=== PATIENT | female | born 1980 | race Caucasian/White ===

== ENCOUNTER 2018-01-19 21:29 | Inpatient (IN) ==
--- NOTE | 2018-01-19 21:35 | Emergency Department Note ---
Disposition Clinical Impression: Altered mental status Qualifiers: Altered mental status type: unspecified Qualified Code(s): R41.82 - Altered mental status, unspecified Overdose Qualifiers: Encounter type: initial encounter Injury intent: undetermined intent Qualified Code(s): T50.904A - Poisoning by unspecified drugs, medicaments and biological substances, undetermined, initial encounter Fever Qualifiers: Fever type: unspecified Qualified Code(s): R50.9 - Fever, unspecified Nausea and vomiting Qualifiers: Vomiting type: unspecified Vomiting Intractability: non-intractable Qualified Code(s): R11.2 - Nausea with vomiting, unspecified Sepsis Qualifiers: Sepsis type: sepsis due to unspecified organism Qualified Code(s): A41.9 - Sepsis, unspecified organism Disposition: Admitted As Inpatient Condition: Fair Referrals: Michael Elena DO [Primary Care Provider] - Forms: ED Satisfaction Letter Time of Disposition: 05:22 Nausea/Vomiting/Diarrhea HPI - General Chief complaint: ED Nausea/Vomiting/Diarrhea Stated complaint: NV Time Seen by Provider: 01/19/18 21:34 Source: patient Mode of arrival: wheelchair Limitations: no limitations Nursing Notes Reviewed: Yes Vital Signs Reviewed: Yes - History of Present Illness HPI Narrative: Patient is a 37-year-old female who presents today due to nausea, vomiting, fever, altered mental status. Significant other is present states that for the past 2-3 hours, the patient has been having nausea and vomiting, is not acting herself, not answering questions appropriately. He states that earlier this morning, the patient was acting normally. 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 During this process is when the patient started developing these symptoms. He does state the patient has a previous history of drug use and is currently on Suboxone but he denies that she has had any recent drug use to his knowledge. He denies any other medical problems for the patient. Denies patient having any other complaints of chest pain, shortness breath. No recent known sick contacts. The patient herself only answer a few questions. She does admit to abdominal pain but does not describe where she also admits to nausea, vomiting but denies any diarrhea. Denies any chest pain. Will not answer any other review of system questions. - Related Data Home Medications Medication Instructions Recorded Confirmed ALPRAZolam [Xanax 0.5 MG Tablet] 0.5 mg PO Q6H PRN 10/26/16 10/26/16 Baclofen [Lioresal] 10 mg PO TID 10/26/16 10/26/16 Butalbit/Acetamin/Caff/Codeine 1 cap PO Q4H PRN 10/26/16 10/26/16 [Fioricet-Cod 94-384-15-30 Cap] Ergocalciferol (VITAMIN D2) 50,000 unit PO QWEEK 10/26/16 10/26/16 [Vitamin D2] Omeprazole [PriLOSEC] 40 mg PO DAILY 10/26/16 10/26/16 Ondansetron [Zofran] 8 mg PO DAILY PRN 10/26/16 10/26/16 rOPINIRole [Requip] 0.5 mg PO HS 10/26/16 10/26/16 traZODone [TraZODone] 50 mg PO HS 10/26/16 10/26/16 Allergies Allergy/AdvReac Type Severity Reaction Status Date / Time ciprofloxacin [From Cipro] Allergy Hives Verified 01/19/18 21:32 codeine AdvReac Nausea Verified 01/19/18 21:32 ketorolac [From Toradol] AdvReac Nausea Verified 01/19/18 21:32 morphine AdvReac Nausea Verified 01/19/18 21:32 tramadol AdvReac Nausea Verified 01/19/18 21:32 All systems ED: reviewed and negative except as stated. Constitutional: Reports: fever Cardiovascular: Denies: chest pain Respiratory: Denies: cough, dyspnea Gastrointestinal: Reports: abdominal pain, nausea, vomiting. Denies: diarrhea Past Medical History - Past Medical History Attestation: Yes The following information was validated with the patient. Source: patient Medical history: Reports: GERD, hepatitis, liver disease, renal disease Surgical history: Reports: hysterectomy, ureteral stent, other - Social History Smoking Status: Current every day smoker Alcohol use: Reports: none Drug use: Reports: none Physical Exam - General Limitations: altered mental status General appearance: alert, other (Actively nauseated) - Head Head exam: atraumatic, normocephalic, normal inspection - Eye Eye exam: Present: normal appearance, PERRL, EOMI - ENT ENT exam: normal exam, normal oropharynx, mucous membranes moist - Neck Neck exam: Present: normal inspection, full ROM, trachea midline. Absent: tenderness, meningismus, lymphadenopathy - Chest Chest inspection: Present: normal inspection, symmetric chest wall rise - Respiratory Respiratory exam: Present: normal lung sounds bilaterally - Cardiovascular Cardiovascular exam: Present: normal rhythm, tachycardia, normal heart sounds - Abdominal Exam Abdominal exam: Present: soft, Non-Tender. Absent: tenderness, distention, guarding, rebound, rigidity - Extremities Exam Extremities exam: Present: normal inspection, full ROM. Absent: tenderness, pedal edema - Neurological Exam Neurological exam: Present: alert - Expanded Neurological Exam Patient oriented to: Present: person. Absent: place, time Speech: Present: fluid speech Cranial nerves: EOM function (II, III, IV, ): Normal, facial sensation (V): Normal, facial palsy (VII): Normal, spinal accessory function (XI): Normal, tongue deviation (XII): Normal Motor strength - LUE: 5/5 Motor strength - RUE: 5/5 Motor strength - LLE: 5/5 Motor strength - RLE: 5/5 Sensory exam upper extremity: light touch: Normal Sensory exam lower extremity: light touch: Normal Coma Scale Eye Opening: Spontaneous Coma Scale Motor Response: Obeys Commands Coma Scale Verbal Response: Confused Coma Scale Total: 14 - Psychiatric Psychiatric exam: Present: normal affect, normal mood - Skin Skin exam: Present: warm, dry, intact, normal color Course Course Narrative: With fever, tachycardia, tachypnea, patient meets sepsis criteria. Full sepsis workup was ordered. Patient was given IV Tylenol, 3 L normal saline bolus, CBC , BMP, blood cultures, urinalysis and urine , CT of the head, chest x- ray, CT abdomen and pelvis obtained. Labs show possible UTI. CT abdomen and pelvis shows no evidence of any acute intra-abdominal process. Chest CTA negative for any acute process. Head CT negative for any acute intracranial process. Patient was reassessed and she became less responsive. Patient was given Narcan and she almost immediately became alert, oriented 3, answering questions appropriately. We discussed obtaining an LP with the patient, discussed risk and benefits and the patient refused despite a long conversation about concern for meningitis. MRI of the entire spine was ordered due to concern for fever, complaint of back pain, history of IV drug use. OR was negative for any Jaw abscess. Patient received empiric vancomycin and Zosyn during her stay. She has been accepted for admission by Dr. Santiago. Remains alert and oriented x 3 at this time. Abdomen/Pelvis CTA 01/19/18 21:36 IMPRESSION: No acute aortic abnormality identified. No acute airspace disease or acute abnormality identified in the abdomen or pelvis. Left renal scarring and left nephrolithiasis. Mildly distended gallbladder without visible stones or CT evidence for acute cholecystitis. D/ / Boni Patino / Boni Patino Interpreting Provider: Boni Patino Chest CTA 01/19/18 21:36 IMPRESSION: No acute aortic abnormality identified. No acute airspace disease or acute abnormality identified in the abdomen or pelvis. Left renal scarring and left nephrolithiasis. Mildly distended gallbladder without visible stones or CT evidence for acute cholecystitis. D/ / Boni Patino / Boni Patino Interpreting Provider: Boni Patino Head CT 01/19/18 21:36 IMPRESSION: No acute intracranial abnormality. D/ / Boni Patino / Boni Patino Interpreting Provider: Boni Patino Chest X-Ray 01/19/18 21:40 IMPRESSION: No acute process. D/ / Bard Bee MD / Brad Bee MD Interpreting Provider: Brad Bee MD Vital Signs Temperature 105.3 F H 01/19/18 21:29 Pulse Rate 105 01/19/18 21:29 Respiratory Rate 24 01/19/18 21:29 Blood Pressure 158/78 01/19/18 21:29 O2 Sat by Pulse Oximetry 92 01/19/18 21:29 Temperature 105.3 F H 01/19/18 21:30 Pulse Rate 90 01/19/18 23:41 Respiratory Rate 20 01/19/18 23:41 Blood Pressure 111/53 01/19/18 23:41 O2 Sat by Pulse Oximetry 95 01/19/18 23:41 Oxygen Delivery Oxygen Delivery Nasal Cannula Nausea/Vomiting/Diarrhea - [facility] Narrative Medical decision making narrative: With fever, tachycardia, tachypnea, patient meets sepsis criteria. Full sepsis workup was ordered. Patient was given IV Tylenol, 3 L normal saline bolus, CBC , BMP, blood cultures, urinalysis and urine , CT of the head, chest x- ray, CT abdomen and pelvis obtained. Labs show possible UTI. CT abdomen and pelvis shows no evidence of any acute intra-abdominal process. Chest CTA negative for any acute process. Head CT negative for any acute intracranial process. Patient was reassessed and she became less responsive. Patient was given Narcan and she almost immediately became alert, oriented 3, answering questions appropriately. We discussed obtaining an LP with the patient, discussed risk and benefits and the patient refused despite a long conversation about concern for meningitis. MRI of the entire spine was ordered due to concern for fever, complaint of back pain, history of IV drug use. OR was negative for any Jaw abscess. Patient received empiric vancomycin and Zosyn during her stay. She has been accepted for admission by Dr. Santiago. Remains alert and oriented x 3 at this time. - Medical Records Medical records reviewed: Yes I reviewed the patient's medical records. - Lab Data Lab results reviewed: Yes I reviewed the patient's lab results. Result diagrams: 01/19/18 21:47 01/19/18 21:47 Lab Results 01/19/18 01/19/18 01/19/18 Range/Units 21:40 21:47 21:47 WBC 5.1 (4.3-11.1) K/mcL RBC 3.72 L (3.82-4.97) M/mcL Hgb 12.8 (11.5-15.4) g/dL Hct 37.0 (35.3-44.9) % MCV 99.5 (83.0-100.0) fL MCH 34.4 H (28.0-33.3) pg MCHC 34.6 (31.6-35.5) g/dL RDW 12.9 (11.5-14.5) % Plt Count 163 (140-400) K/mcL MPV 9.3 L (9.4-12.4) fL Immature Gran % 0.4 (0-4) % Seg Neutrophils % 86.6 % Lymphocytes % 11.8 % Monocytes % 1.2 % Eosinophils % 0.0 % Basophils % 0.0 % Neutrophils # 4.4 (1.6-8.9) K/mcL Lymphocytes # 0.6 (0.6-4.6) K/mcL Monocytes # 0.1 (0.0-1.3) K/mcL Eosinophils # 0.0 (0.0-0.6) K/mcL Basophils # 0.0 (0.0-0.2) K/mcL Platelet Estimate Normal (Normal) PT 11.9 (9.4-12.1) Seconds INR 1.1 APTT 29.2 (26.0-36.0) Seconds VBG pH (7.32-7.42) pH Units VBG pCO2 (41-51) mmHg VBG pO2 (25-50) mmHg VBG HCO3 (21-27) mEq/L Carboxyhemoglobin (0-5) % Sodium (136-145) mEq/L Potassium (3.5-5.1) mEq/L Chloride (98-107) mEq/L Carbon Dioxide (23-29) mEq/L BUN (6-20) mg/dL Creatinine (0.60-1.20) mg/dL Est GFR ( Amer) (> 60) Est GFR (Non-Af Amer) (> 60) BUN/Creatinine Ratio (6-26) Glucose (70-105) mg/dL Calculated Osmolality (280-300) Lactic Acid (0.5-2.2) mmol/L Calcium (8.6-10.3) mg/dL Phosphorus (2.7-4.5) mg/dL Magnesium (1.6-2.6) mg/dL Total Bilirubin (0.3-1.0) mg/dL Direct Bilirubin (0.0-0.2) mg/dL Indirect Bilirubin (0.0-1.2) mg/dL AST (13-39) Units/L ALT (7-52) Units/L Alkaline Phosphatase (34-104) Units/L Troponin I (< 0.04) ng/mL B-Natriuretic Peptide (Less than 100) pg/mL Serum Total Protein (6.4-8.9) g/dL Albumin (3.5-5.7) g/dL Globulin (2.4-3.5) g/dL Albumin/Globulin Ratio (1.1-2.2) Lipase (11-82) Units/L Urine Color Yellow (Yellow) Urine Clarity Slightly Hazy (Clear) Urine pH 8.0 (5.0-8.0) pH Units Ur Specific [place] 1.019 (1.010-1.025) Urine Protein 100 H (Neg-Trace) mg/dL Urine Glucose (UA) Normal (Normal) mg/dL Urine Ketones Negative (Negative) mg/dL Urine Blood Small H (Negative) Urine Nitrite Negative (Negative) Urine Bilirubin Negative (Negative) Urine Urobilinogen Normal (Normal) mg/dL Ur Leukocyte Esterase Moderate H (Negative) Urine Microscopic RBC 15-30 H (0-3) per hpf Urine Microscopic WBC 50-100 H (0-3) per hpf Ur Squamous Epith Cells Moderate H (None-Few) per lpf Urine Bacteria Few (None-Few) per hpf Hyaline Casts None Seen (None-Few) per lpf Ur Culture Indicated? YES A (NO) Salicylates (15.0-30.0) mg/dL Acetaminophen (10-20) mcg/mL 01/19/18 01/19/18 01/19/18 Range/Units 21:47 21:47 21:47 WBC (4.3-11.1) K/mcL RBC (3.82-4.97) M/mcL Hgb (11.5-15.4) g/dL Hct (35.3-44.9) % MCV (83.0-100.0) fL MCH (28.0-33.3) pg MCHC (31.6-35.5) g/dL RDW (11.5-14.5) % Plt Count (140-400) K/mcL MPV (9.4-12.4) fL Immature Gran % (0-4) % Seg Neutrophils % % Lymphocytes % % Monocytes % % Eosinophils % % Basophils % % Neutrophils # (1.6-8.9) K/mcL Lymphocytes # (0.6-4.6) K/mcL Monocytes # (0.0-1.3) K/mcL Eosinophils # (0.0-0.6) K/mcL Basophils # (0.0-0.2) K/mcL Platelet Estimate (Normal) PT (9.4-12.1) Seconds INR APTT (26.0-36.0) Seconds VBG pH (7.32-7.42) pH Units VBG pCO2 (41-51) mmHg VBG pO2 (25-50) mmHg VBG HCO3 (21-27) mEq/L Carboxyhemoglobin (0-5) % Sodium 137 (136-145) mEq/L Potassium 4.0 (3.5-5.1) mEq/L Chloride 104 (98-107) mEq/L Carbon Dioxide 26 (23-29) mEq/L BUN 19 (6-20) mg/dL Creatinine 1.22 H (0.60-1.20) mg/dL Est GFR ( Amer) > 60 (> 60) Est GFR (Non-Af Amer) 50 L (> 60) BUN/Creatinine Ratio 16 (6-26) Glucose 103 (70-105) mg/dL Calculated Osmolality 287 (280-300) Lactic Acid 1.3 (0.5-2.2) mmol/L Calcium 9.3 (8.6-10.3) mg/dL Phosphorus 2.0 L (2.7-4.5) mg/dL Magnesium 1.7 (1.6-2.6) mg/dL Total Bilirubin 0.7 (0.3-1.0) mg/dL Direct Bilirubin 0.1 (0.0-0.2) mg/dL Indirect Bilirubin 0.6 (0.0-1.2) mg/dL AST 29 (13-39) Units/L ALT 33 (7-52) Units/L Alkaline Phosphatase 72 (34-104) Units/L Troponin I < 0.03 (< 0.04) ng/mL B-Natriuretic Peptide 76 (Less than 100) pg/mL Serum Total Protein 7.5 (6.4-8.9) g/dL Albumin 4.2 (3.5-5.7) g/dL Globulin 3.3 (2.4-3.5) g/dL Albumin/Globulin Ratio 1.3 (1.1-2.2) Lipase 9 L (11-82) Units/L Urine Color (Yellow) Urine Clarity (Clear) Urine pH (5.0-8.0) pH Units Ur Specific [place] (1.010-1.025) Urine Protein (Neg-Trace) mg/dL Urine Glucose (UA) (Normal) mg/dL Urine Ketones (Negative) mg/dL Urine Blood (Negative) Urine Nitrite (Negative) Urine Bilirubin (Negative) Urine Urobilinogen (Normal) mg/dL Ur Leukocyte Esterase (Negative) Urine Microscopic RBC (0-3) per hpf Urine Microscopic WBC (0-3) per hpf Ur Squamous Epith Cells (None-Few) per lpf Urine Bacteria (None-Few) per hpf Hyaline Casts (None-Few) per lpf Ur Culture Indicated? (NO) Salicylates (15.0-30.0) mg/dL Acetaminophen (10-20) mcg/mL 01/19/18 01/19/18 01/19/18 Range/Units 21:47 21:47 21:58 WBC (4.3-11.1) K/mcL RBC (3.82-4.97) M/mcL Hgb (11.5-15.4) g/dL Hct (35.3-44.9) % MCV (83.0-100.0) fL MCH (28.0-33.3) pg MCHC (31.6-35.5) g/dL RDW (11.5-14.5) % Plt Count (140-400) K/mcL MPV (9.4-12.4) fL Immature Gran % (0-4) % Seg Neutrophils % % Lymphocytes % % Monocytes % % Eosinophils % % Basophils % % Neutrophils # (1.6-8.9) K/mcL Lymphocytes # (0.6-4.6) K/mcL Monocytes # (0.0-1.3) K/mcL Eosinophils # (0.0-0.6) K/mcL Basophils # (0.0-0.2) K/mcL Platelet Estimate (Normal) PT (9.4-12.1) Seconds INR APTT (26.0-36.0) Seconds VBG pH 7.47 H (7.32-7.42) pH Units VBG pCO2 36 L (41-51) mmHg VBG pO2 154 H (25-50) mmHg VBG HCO3 27 (21-27) mEq/L Carboxyhemoglobin 10.2 H (0-5) % Sodium (136-145) mEq/L Potassium (3.5-5.1) mEq/L Chloride (98-107) mEq/L Carbon Dioxide (23-29) mEq/L BUN (6-20) mg/dL Creatinine (0.60-1.20) mg/dL Est GFR ( Amer) (> 60) Est GFR (Non-Af Amer) (> 60) BUN/Creatinine Ratio (6-26) Glucose (70-105) mg/dL Calculated Osmolality (280-300) Lactic Acid (0.5-2.2) mmol/L Calcium (8.6-10.3) mg/dL Phosphorus (2.7-4.5) mg/dL Magnesium (1.6-2.6) mg/dL Total Bilirubin (0.3-1.0) mg/dL Direct Bilirubin (0.0-0.2) mg/dL Indirect Bilirubin (0.0-1.2) mg/dL AST (13-39) Units/L ALT (7-52) Units/L Alkaline Phosphatase (34-104) Units/L Troponin I (< 0.04) ng/mL B-Natriuretic Peptide (Less than 100) pg/mL Serum Total Protein (6.4-8.9) g/dL Albumin (3.5-5.7) g/dL Globulin (2.4-3.5) g/dL Albumin/Globulin Ratio (1.1-2.2) Lipase (11-82) Units/L Urine Color (Yellow) Urine Clarity (Clear) Urine pH (5.0-8.0) pH Units Ur Specific [place] (1.010-1.025) Urine Protein (Neg-Trace) mg/dL Urine Glucose (UA) (Normal) mg/dL Urine Ketones (Negative) mg/dL Urine Blood (Negative) Urine Nitrite (Negative) Urine Bilirubin (Negative) Urine Urobilinogen (Normal) mg/dL Ur Leukocyte Esterase (Negative) Urine Microscopic RBC (0-3) per hpf Urine Microscopic WBC (0-3) per hpf Ur Squamous Epith Cells (None-Few) per lpf Urine Bacteria (None-Few) per hpf Hyaline Casts (None-Few) per lpf Ur Culture Indicated? (NO) Salicylates < 2.5 L (15.0-30.0) mg/dL Acetaminophen < 10 L (10-20) mcg/mL - Radiology Data Radiology results reviewed: Yes I reviewed the patient's radiology results. Abdomen/Pelvis CTA 01/19/18 21:36 IMPRESSION: No acute aortic abnormality identified. No acute airspace disease or acute abnormality identified in the abdomen or pelvis. Left renal scarring and left nephrolithiasis. Mildly distended gallbladder without visible stones or CT evidence for acute cholecystitis. D/ / Boni Patino / Boni Patino Interpreting Provider: Boni Patino Chest CTA 01/19/18 21:36 IMPRESSION: No acute aortic abnormality identified. No acute airspace disease or acute abnormality identified in the abdomen or pelvis. Left renal scarring and left nephrolithiasis. Mildly distended gallbladder without visible stones or CT evidence for acute cholecystitis. D/ / Boni Patino / Boni Patino Interpreting Provider: Boni Patino Head CT 01/19/18 21:36 IMPRESSION: No acute intracranial abnormality. D/ / Boni Patino / Boni Patino Interpreting Provider: Boni Patino Chest X-Ray 01/19/18 21:40 IMPRESSION: No acute process. D/ / Brad Bee MD / Brad Bee MD Interpreting Provider: Brad Bee MD - EKG Data EKG attestation: Yes I reviewed and interpreted this EKG. EKG results narrative: 01/19/2018 at 21:49. Sinus tachycardia. Rate 100. MD 158. QRS 91. QTc 355. Normal axis. No acute ST elevation or depression. S.B.A.R. - S.B.A.R. Situation: Demographics, MOA Background: Presenting Complaint, Relevant PMH, Meds, & Allergies Assessment: Vital Signs, Course and respsone to treatment, Exam Concerns, Patient/Family Expectation, Pertinant Lab Results Recommendation: Barrier(s) to disposition, Recommendation based on pending studies, treatments, or consults S.B.A.R. Report Given to: Dr. Santiago
[2018-01-19] MEDS ORDERED: Isovue-370 500 ML INFUS..BTL IV ONE (21:36)
[2018-01-19] MEDS ORDERED: Acetaminophen IV 1,000 MG/100 ML INFUS..BTL IVPB ONE (21:43)
[2018-01-19] MEDS ORDERED: Piperacillin/Tazobactam 3.375 GM in 0.9 % Sodium Chloride Mini Bag 100 ML IVPB ONE (21:43)
[2018-01-19] MEDS ORDERED: 0.9 % Sodium Chloride 3,000 ML ONE (21:48)
[2018-01-19] MEDS: 0.9 % Sodium Chloride 1,000 ML IVC SCH ×3 (21:54→23:44)
[2018-01-19 22:01] LABS: VBG HCO3 27 mEq/L (21-27); VBG PCO2 36 mmHg (41-51); VBG PH 7.47 pH Units (7.32-7.42); VBG PO2 154 mmHg (25-50)
[2018-01-19 22:02] LABS: Bilirubin,Urine Negative (Negative); Blood,Urine Small (Negative); Color,Urine Yellow (Yellow); Glucose,Urine (UA) Normal (Normal); Ketones,Urine Negative (Negative); Leukocyte Esterase,Urine Moderate (Negative); Nitrite,Urine Negative (Negative); Protein,Urine 100 mg/dL (Neg-Trace); Specific Gravity,Urine 1.019 (1.010-1.025); Urobilinogen,Urine Normal (Normal)
[2018-01-19 22:03] LABS: Hemoglobin 12.8 g/dL (11.5-15.4); Immature Granulocytes % 0.4 % (0-4); Lymphocytes # 0.6 K/mcL (0.6-4.6); Lymphocytes % 11.8 %; Mean Corpuscular HGB Conc 34.6 g/dL (31.6-35.5); Mean Corpuscular Hemoglobin 34.4 pg (28.0-33.3); Mean Corpuscular Volume 99.5 fL (83.0-100.0); Mean Platelet Volume 9.3 fL (9.4-12.4); Monocytes # 0.1 K/mcL (0.0-1.3); Monocytes % 1.2 %; Neutrophils # 4.4 K/mcL (1.6-8.9); Platelet Count 163 K/mcL (140-400); Red Blood Count 3.72 M/mcL (3.82-4.97); Red Cell Distribution Width 12.9 % (11.5-14.5); Segmented Neutrophils % 86.6 %
[2018-01-19 22:05] LABS: Bacteria,Urine Few per hpf (None-Few); Hyaline Casts,Urine None Seen per lpf (None-Few); RBC,Urine 15-30 per hpf (0-3); Squamous Epithelial Cell,Urine Moderate per lpf (None-Few); WBC,Urine 50-100 per hpf (0-3)
[2018-01-19 22:06] LABS: Clarity,Urine Slightly Hazy (Clear)
[2018-01-19 22:08] LABS: INR 1.1; Prothrombin Time 11.9 Seconds (9.4-12.1)
[2018-01-19 22:10] LABS: Activated Partial Thrombo Time 29.2 Seconds (26.0-36.0)
[2018-01-19 22:19] LABS: Platelet Estimate Normal (Normal)
[2018-01-19 22:22] LABS: Acetaminophen < 10 mcg/mL (10-20); Salicylate < 2.5 mg/dL (15.0-30.0)
[2018-01-19 22:25] LABS: Alanine Aminotransferase 33 Units/L (7-52); Albumin 4.2 g/dL (3.5-5.7); Albumin/Globulin Ratio 1.3 (1.1-2.2); Alkaline Phosphatase 72 Units/L (34-104); Aspartate Amino Transferase 29 Units/L (13-39); BUN/Creatinine Ratio 16 (6-26); Bilirubin,Direct 0.1 mg/dL (0.0-0.2); Bilirubin,Indirect 0.6 mg/dL (0.0-1.2); Bilirubin,Total 0.7 mg/dL (0.3-1.0); Blood Urea Nitrogen 19 mg/dL (6-20); Calcium 9.3 mg/dL (8.6-10.3); Carbon Dioxide 26 mEq/L (23-29); Chloride 104 mEq/L (98-107); Globulin 3.3 g/dL (2.4-3.5); Glucose 103 mg/dL (70-105); Lipase 9 Units/L (11-82); Magnesium 1.7 mg/dL (1.6-2.6); Osmolality,Calculated 287 (280-300); Sodium 137 mEq/L (136-145); Total Protein 7.5 g/dL (6.4-8.9); Troponin I < 0.03 ng/mL (< 0.04); eGFR For African Americans > 60 (> 60); eGFR For Non-African Americans 50 (> 60)
[2018-01-20] MEDS ORDERED: Naloxone 0.4 MG/ML INJ IVP ONE (00:07)
[2018-01-20] MEDS ORDERED: Gadolinium Contrast Agent (WT Based) IV PRN (00:15)
--- NOTE | 2018-01-20 05:23 | Emergency Department Note ---
Disposition Referrals: Michael Elena DO [Primary Care Provider] - Forms: ED Satisfaction Letter General Adult HPI - General Chief complaint: ED Nausea/Vomiting/Diarrhea Stated complaint: NV Time Seen by Provider: 01/19/18 21:34 Source: patient Mode of arrival: wheelchair Limitations: altered mental status - History of Present Illness Pain Scale: 0 - Related Data Home Medications Medication Instructions Recorded Confirmed ALPRAZolam [Xanax 0.5 MG Tablet] 0.5 mg PO Q6H PRN 10/26/16 10/26/16 Baclofen [Lioresal] 10 mg PO TID 10/26/16 10/26/16 Butalbit/Acetamin/Caff/Codeine 1 cap PO Q4H PRN 10/26/16 10/26/16 [Fioricet-Cod 51-671-26-30 Cap] Ergocalciferol (VITAMIN D2) 50,000 unit PO QWEEK 10/26/16 10/26/16 [Vitamin D2] Omeprazole [PriLOSEC] 40 mg PO DAILY 10/26/16 10/26/16 Ondansetron [Zofran] 8 mg PO DAILY PRN 10/26/16 10/26/16 rOPINIRole [Requip] 0.5 mg PO HS 10/26/16 10/26/16 traZODone [TraZODone] 50 mg PO HS 10/26/16 10/26/16 Allergies Allergy/AdvReac Type Severity Reaction Status Date / Time ciprofloxacin [From Cipro] Allergy Hives Verified 01/19/18 21:32 codeine AdvReac Nausea Verified 01/19/18 21:32 ketorolac [From Toradol] AdvReac Nausea Verified 01/19/18 21:32 morphine AdvReac Nausea Verified 01/19/18 21:32 tramadol AdvReac Nausea Verified 01/19/18 21:32 Constitutional: Reports: fever Cardiovascular: Denies: chest pain Respiratory: Denies: cough, dyspnea Gastrointestinal: Reports: abdominal pain, nausea, vomiting. Denies: diarrhea Past Medical History - Past Medical History Medical history: Reports: GERD, hepatitis, liver disease, renal disease Surgical history: Reports: hysterectomy, ureteral stent, other Psychiatric history: Reports: no psych history - Social History Smoking Status: Current every day smoker Alcohol use: Reports: none Drug use: Reports: none Physical Exam - General Limitations: altered mental status General appearance: alert, other (Actively nauseated) Course Vital Signs Temperature 105.3 F H 01/19/18 21:29 Pulse Rate 105 01/19/18 21:29 Respiratory Rate 24 01/19/18 21:29 Blood Pressure 158/78 01/19/18 21:29 O2 Sat by Pulse Oximetry 92 01/19/18 21:29 Temperature 105.3 F H 01/19/18 21:30 Pulse Rate 90 01/19/18 23:41 Respiratory Rate 20 01/19/18 23:41 Blood Pressure 111/53 01/19/18 23:41 O2 Sat by Pulse Oximetry 95 01/19/18 23:41 Oxygen Delivery Oxygen Delivery Nasal Cannula Medical Decision Making - Lab Data Result diagrams: 01/19/18 21:47 01/19/18 21:47 Lab Results 01/19/18 01/19/18 01/19/18 Range/Units 21:40 21:47 21:47 WBC 5.1 (4.3-11.1) K/mcL RBC 3.72 L (3.82-4.97) M/mcL Hgb 12.8 (11.5-15.4) g/dL Hct 37.0 (35.3-44.9) % MCV 99.5 (83.0-100.0) fL MCH 34.4 H (28.0-33.3) pg MCHC 34.6 (31.6-35.5) g/dL RDW 12.9 (11.5-14.5) % Plt Count 163 (140-400) K/mcL MPV 9.3 L (9.4-12.4) fL Immature Gran % 0.4 (0-4) % Seg Neutrophils % 86.6 % Lymphocytes % 11.8 % Monocytes % 1.2 % Eosinophils % 0.0 % Basophils % 0.0 % Neutrophils # 4.4 (1.6-8.9) K/mcL Lymphocytes # 0.6 (0.6-4.6) K/mcL Monocytes # 0.1 (0.0-1.3) K/mcL Eosinophils # 0.0 (0.0-0.6) K/mcL Basophils # 0.0 (0.0-0.2) K/mcL Platelet Estimate Normal (Normal) PT 11.9 (9.4-12.1) Seconds INR 1.1 APTT 29.2 (26.0-36.0) Seconds VBG pH (7.32-7.42) pH Units VBG pCO2 (41-51) mmHg VBG pO2 (25-50) mmHg VBG HCO3 (21-27) mEq/L Carboxyhemoglobin (0-5) % Sodium (136-145) mEq/L Potassium (3.5-5.1) mEq/L Chloride (98-107) mEq/L Carbon Dioxide (23-29) mEq/L BUN (6-20) mg/dL Creatinine (0.60-1.20) mg/dL Est GFR ( Amer) (> 60) Est GFR (Non-Af Amer) (> 60) BUN/Creatinine Ratio (6-26) Glucose (70-105) mg/dL Calculated Osmolality (280-300) Lactic Acid (0.5-2.2) mmol/L Calcium (8.6-10.3) mg/dL Phosphorus (2.7-4.5) mg/dL Magnesium (1.6-2.6) mg/dL Total Bilirubin (0.3-1.0) mg/dL Direct Bilirubin (0.0-0.2) mg/dL Indirect Bilirubin (0.0-1.2) mg/dL AST (13-39) Units/L ALT (7-52) Units/L Alkaline Phosphatase (34-104) Units/L Troponin I (< 0.04) ng/mL B-Natriuretic Peptide (Less than 100) pg/mL Serum Total Protein (6.4-8.9) g/dL Albumin (3.5-5.7) g/dL Globulin (2.4-3.5) g/dL Albumin/Globulin Ratio (1.1-2.2) Lipase (11-82) Units/L Urine Color Yellow (Yellow) Urine Clarity Slightly Hazy (Clear) Urine pH 8.0 (5.0-8.0) pH Units Ur Specific [place] 1.019 (1.010-1.025) Urine Protein 100 H (Neg-Trace) mg/dL Urine Glucose (UA) Normal (Normal) mg/dL Urine Ketones Negative (Negative) mg/dL Urine Blood Small H (Negative) Urine Nitrite Negative (Negative) Urine Bilirubin Negative (Negative) Urine Urobilinogen Normal (Normal) mg/dL Ur Leukocyte Esterase Moderate H (Negative) Urine Microscopic RBC 15-30 H (0-3) per hpf Urine Microscopic WBC 50-100 H (0-3) per hpf Ur Squamous Epith Cells Moderate H (None-Few) per lpf Urine Bacteria Few (None-Few) per hpf Hyaline Casts None Seen (None-Few) per lpf Ur Culture Indicated? YES A (NO) Salicylates (15.0-30.0) mg/dL Acetaminophen (10-20) mcg/mL 01/19/18 01/19/18 01/19/18 Range/Units 21:47 21:47 21:47 WBC (4.3-11.1) K/mcL RBC (3.82-4.97) M/mcL Hgb (11.5-15.4) g/dL Hct (35.3-44.9) % MCV (83.0-100.0) fL MCH (28.0-33.3) pg MCHC (31.6-35.5) g/dL RDW (11.5-14.5) % Plt Count (140-400) K/mcL MPV (9.4-12.4) fL Immature Gran % (0-4) % Seg Neutrophils % % Lymphocytes % % Monocytes % % Eosinophils % % Basophils % % Neutrophils # (1.6-8.9) K/mcL Lymphocytes # (0.6-4.6) K/mcL Monocytes # (0.0-1.3) K/mcL Eosinophils # (0.0-0.6) K/mcL Basophils # (0.0-0.2) K/mcL Platelet Estimate (Normal) PT (9.4-12.1) Seconds INR APTT (26.0-36.0) Seconds VBG pH (7.32-7.42) pH Units VBG pCO2 (41-51) mmHg VBG pO2 (25-50) mmHg VBG HCO3 (21-27) mEq/L Carboxyhemoglobin (0-5) % Sodium 137 (136-145) mEq/L Potassium 4.0 (3.5-5.1) mEq/L Chloride 104 (98-107) mEq/L Carbon Dioxide 26 (23-29) mEq/L BUN 19 (6-20) mg/dL Creatinine 1.22 H (0.60-1.20) mg/dL Est GFR ( Amer) > 60 (> 60) Est GFR (Non-Af Amer) 50 L (> 60) BUN/Creatinine Ratio 16 (6-26) Glucose 103 (70-105) mg/dL Calculated Osmolality 287 (280-300) Lactic Acid 1.3 (0.5-2.2) mmol/L Calcium 9.3 (8.6-10.3) mg/dL Phosphorus 2.0 L (2.7-4.5) mg/dL Magnesium 1.7 (1.6-2.6) mg/dL Total Bilirubin 0.7 (0.3-1.0) mg/dL Direct Bilirubin 0.1 (0.0-0.2) mg/dL Indirect Bilirubin 0.6 (0.0-1.2) mg/dL AST 29 (13-39) Units/L ALT 33 (7-52) Units/L Alkaline Phosphatase 72 (34-104) Units/L Troponin I < 0.03 (< 0.04) ng/mL B-Natriuretic Peptide 76 (Less than 100) pg/mL Serum Total Protein 7.5 (6.4-8.9) g/dL Albumin 4.2 (3.5-5.7) g/dL Globulin 3.3 (2.4-3.5) g/dL Albumin/Globulin Ratio 1.3 (1.1-2.2) Lipase 9 L (11-82) Units/L Urine Color (Yellow) Urine Clarity (Clear) Urine pH (5.0-8.0) pH Units Ur Specific [place] (1.010-1.025) Urine Protein (Neg-Trace) mg/dL Urine Glucose (UA) (Normal) mg/dL Urine Ketones (Negative) mg/dL Urine Blood (Negative) Urine Nitrite (Negative) Urine Bilirubin (Negative) Urine Urobilinogen (Normal) mg/dL Ur Leukocyte Esterase (Negative) Urine Microscopic RBC (0-3) per hpf Urine Microscopic WBC (0-3) per hpf Ur Squamous Epith Cells (None-Few) per lpf Urine Bacteria (None-Few) per hpf Hyaline Casts (None-Few) per lpf Ur Culture Indicated? (NO) Salicylates (15.0-30.0) mg/dL Acetaminophen (10-20) mcg/mL 01/19/18 01/19/18 01/19/18 Range/Units 21:47 21:47 21:58 WBC (4.3-11.1) K/mcL RBC (3.82-4.97) M/mcL Hgb (11.5-15.4) g/dL Hct (35.3-44.9) % MCV (83.0-100.0) fL MCH (28.0-33.3) pg MCHC (31.6-35.5) g/dL RDW (11.5-14.5) % Plt Count (140-400) K/mcL MPV (9.4-12.4) fL Immature Gran % (0-4) % Seg Neutrophils % % Lymphocytes % % Monocytes % % Eosinophils % % Basophils % % Neutrophils # (1.6-8.9) K/mcL Lymphocytes # (0.6-4.6) K/mcL Monocytes # (0.0-1.3) K/mcL Eosinophils # (0.0-0.6) K/mcL Basophils # (0.0-0.2) K/mcL Platelet Estimate (Normal) PT (9.4-12.1) Seconds INR APTT (26.0-36.0) Seconds VBG pH 7.47 H (7.32-7.42) pH Units VBG pCO2 36 L (41-51) mmHg VBG pO2 154 H (25-50) mmHg VBG HCO3 27 (21-27) mEq/L Carboxyhemoglobin 10.2 H (0-5) % Sodium (136-145) mEq/L Potassium (3.5-5.1) mEq/L Chloride (98-107) mEq/L Carbon Dioxide (23-29) mEq/L BUN (6-20) mg/dL Creatinine (0.60-1.20) mg/dL Est GFR ( Amer) (> 60) Est GFR (Non-Af Amer) (> 60) BUN/Creatinine Ratio (6-26) Glucose (70-105) mg/dL Calculated Osmolality (280-300) Lactic Acid (0.5-2.2) mmol/L Calcium (8.6-10.3) mg/dL Phosphorus (2.7-4.5) mg/dL Magnesium (1.6-2.6) mg/dL Total Bilirubin (0.3-1.0) mg/dL Direct Bilirubin (0.0-0.2) mg/dL Indirect Bilirubin (0.0-1.2) mg/dL AST (13-39) Units/L ALT (7-52) Units/L Alkaline Phosphatase (34-104) Units/L Troponin I (< 0.04) ng/mL B-Natriuretic Peptide (Less than 100) pg/mL Serum Total Protein (6.4-8.9) g/dL Albumin (3.5-5.7) g/dL Globulin (2.4-3.5) g/dL Albumin/Globulin Ratio (1.1-2.2) Lipase (11-82) Units/L Urine Color (Yellow) Urine Clarity (Clear) Urine pH (5.0-8.0) pH Units Ur Specific [place] (1.010-1.025) Urine Protein (Neg-Trace) mg/dL Urine Glucose (UA) (Normal) mg/dL Urine Ketones (Negative) mg/dL Urine Blood (Negative) Urine Nitrite (Negative) Urine Bilirubin (Negative) Urine Urobilinogen (Normal) mg/dL Ur Leukocyte Esterase (Negative) Urine Microscopic RBC (0-3) per hpf Urine Microscopic WBC (0-3) per hpf Ur Squamous Epith Cells (None-Few) per lpf Urine Bacteria (None-Few) per hpf Hyaline Casts (None-Few) per lpf Ur Culture Indicated? (NO) Salicylates < 2.5 L (15.0-30.0) mg/dL Acetaminophen < 10 L (10-20) mcg/mL Attestation Statement - Attestation Attestation: I examined this patient and my medical decision-making was reviewed with the Resident Physician. I agree with the documented findings, disposition and treatment plan as described except to the extent set forth below. Patient arrives with somnolence, fever, history of IV drug abuse. Concern for septic pulmonary embolism. Blood cultures and antibiotics initiated. Patient was ultimately given Narcan with improvement of mental status. She will need admission for evaluation of febrile illness. I did offer lumbar puncture but she declined this. She was alert and oriented at the time she declined. Additionally I completed a MRI of her cervical, thoracic, lumbar spine. There is no evidence of epidural abscess or discitis. The patient will be admitted for further management. I spent greater than 35 minutes of critical care time resuscitating this acutely ill patient suffering from possible sepsis. She was fluid responsive. This is excluding billable procedures.
[2018-01-20] MEDS ORDERED: Naloxone 0.4 MG/ML INJ IVP PRN (05:31)
--- NOTE | 2018-01-20 05:59 | Internal Med History&Physical ---
Date of Encounter: 01/20/18 Time of Encounter: 05:56 Internal Medicine - H&P: HPI Chief complaint: altered mental status Admitted From: Emergency Dept Plans for Post Hospital Care: Home History of present illness: Ms. Zuniga is a 37 year old female with history of previous IV drug abuse, hepatitis C, depression, morbid obesity, kidney stones who presented to the ED accompanied by her significant other who brought her in as she was incoherent and confused to him. 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 The patient got into her significant other's car and was barely answering questions. The patient does not remember any of these events that got her to the ED here. Throughout the day she has been vomiting and having bilateral flank pain. She has been nauseous. She cannot remember if she had a fever or not however upon presentation she was noted to have temperature 105.3 that came down to 98.6 with Tylenol. She was also tachycardic. The patient has a history of IV drug abuse and says she last used heroin 2 months ago and has been on Suboxone since she has used any. The patient and her boyfriend do report occasional marijuana. They are adamant that no use of other drugs was done prior to arrival. Due to her presentation, the patient underwent an extensive workup in the ED that included a CT head that was unremarkable. She was given Narcan and she was responsive and alert oriented after that. An MRI of the spine was done looking for osteomyelitis/discitis which was unremarkable. Chest x-ray was negative. A CTA of chest abdomen and pelvis was done with nothing acute found. She was given vancomycin and Zosyn in the ED as well as IV fluids. Laboratory workup was only remarkable for mildly elevated creatinine. The patient had a mildly elevated carboxyhemoglobin at 10.2 but she was never hypoxic, although she was put on 2L O2 via nasal cannula. The patient's boyfriend tells me that she had a cat scratch 2 days ago which is healing on her left thigh. She also states that she had an abscess develop on her left antecubital fossa where she used to inject about 2 months ago which resolved on its own. She denies any headache, blurry vision, chest pain, shortness of breath, diarrhea, constipation, urinary symptoms, or neurological symptoms. Past Med Surg Social Fam HX - Past Medical History Medical history: GERD, hepatitis, liver disease, renal disease Psychiatric history: no psych history - Past Surgical History Surgical History: hysterectomy, ureteral stent, other - Social History Smoking Status: Current every day smoker Alcohol use: none Drug use: none Internal Medicine - H&P: Meds ALPRAZolam [Xanax 0.5 MG Tablet] 0.5 mg PO Q6H PRN 10/26/16 [History] Baclofen [Lioresal] 10 mg PO TID 10/26/16 [History] Butalbit/Acetamin/Caff/Codeine [Fioricet-Cod 77-789-76-30 Cap] 1 cap PO Q4H PRN 10/26/16 [History] Ergocalciferol (VITAMIN D2) [Vitamin D2] 50,000 unit PO QWEEK 10/26/16 [History] Omeprazole [PriLOSEC] 40 mg PO DAILY 10/26/16 [History] Ondansetron [Zofran] 8 mg PO DAILY PRN 10/26/16 [History] rOPINIRole [Requip] 0.5 mg PO HS 10/26/16 [History] traZODone [TraZODone] 50 mg PO HS 10/26/16 [History] 3 Allergy/AdvReac Type Severity Reaction Status Date / Time ciprofloxacin [From Cipro] Allergy Hives Verified 01/19/18 21:32 codeine AdvReac Nausea Verified 01/19/18 21:32 ketorolac [From Toradol] AdvReac Nausea Verified 01/19/18 21:32 morphine AdvReac Nausea Verified 01/19/18 21:32 tramadol AdvReac Nausea Verified 01/19/18 21:32 All Systems PM: A 10-system review of systems was performed and is negative for pertinent findings except as documented above in the HPI. Review of systems: All systems reviewed are negative except as mentioned above - Constitutional Vitals: Temp Pulse Resp BP Pulse Ox 98.6 F 70 21 94/60 97 01/20/18 05:46 01/20/18 05:23 01/20/18 05:46 01/20/18 05:46 01/20/18 05:23 Exam: GEN: NAD HEENT: AT, NC, No cyanosis, oral mucosa is moist, No JVD Lymphatics: No lymphadenoapthy Eyes: Extrocular muscles intact, anicteric CVS:RRR. S1, S2, No m/r/g RESP: CTAB ABD: Soft, NT, ND, +BS EXT: No edema, right lateral thigh with scratch [place] that are healing. 2+ DP NEURO: Nonfocal, CN II-XII intact, No focal motor or sensory deficits Psych: Cooperative, Not anxious or depressed Internal Med - H&P Results - Labs CBC & Chem 7: 01/19/18 21:47 01/19/18 21:47 - Assessment and plan (1) Altered mental status Current Visit: Yes Status: Acute Assessment and plan: Infections vs. substance abuse?? Likely infectious with high grade fever but per ED the patient was A/O x3 suddenly post narcan. Carboxyhemoglobin was 10.2 which above normal but isnt high enough to cause CO toxicity and can be seen in smokers. Will check UDS. check TSH. Treat for infectious cause as below. Patient is A/O x3 now on my exam. No acute findings on CT head and other imaging studies done in ED. Qualifiers: Altered mental status type: unspecified Qualified Code(s): R41.82 - Altered mental status, unspecified (2) SIRS (systemic inflammatory response syndrome) Current Visit: Yes Status: Acute Assessment and plan: Tachycardic and febrile. ??etiology. Patient has no meningeal signs on exam. ?? endocarditis with history of IVDA but only a couple of minor sotelo's criteria ( fever and h/o IVDA). ??UTI but no urinary symptoms. UA showed moderate leuuk esterase. Patient is refusing LP. Will treat with vancomycin/ceftriaxone dosed for endocarditis and menigitis for now. f/u on urine cultures. f/u on blood cultures. Check TTE for vegetations. (3) ELMA (acute kidney injury) Current Visit: Yes Status: Acute Assessment and plan: IV fluids for now. Avoid nephrotoxins. Labs in am. (4) Hepatitis C Current Visit: Yes Status: Acute Assessment and plan: Never been treated. Will order hepatitis panel. Normal LFTs Qualifiers: Viral hepatitis chronicity: unspecified Hepatic coma status: without hepatic coma Qualified Code(s): B19.20 - Unspecified viral hepatitis C without hepatic coma (5) Depression Current Visit: Yes Status: Acute Assessment and plan: resume home meds when verified Qualifiers: Depression Type: unspecified Qualified Code(s): F32.9 - Major depressive disorder, single episode, unspecified (6) Substance abuse Current Visit: Yes Status: Acute Assessment and plan: Been clean for 2 months. Resume Suboxone. (7) DVT prophylaxis Current Visit: Yes Status: Acute Assessment and plan: heparin SQ - Time Spent With Patient Total time spent is greater than 50% in coordination of care (as documented) at patient's floor/unit and/or counseling patient:
[2018-01-20 06:04] LABS: Amphetamine Screen,Urine Negative ng/mL (Cutoff=1000); Barbiturate Screen,Urine Negative ng/mL (Cutoff=200); Benzodiazepines Screen,Urine Negative ng/mL (Cutoff=200); Cannabinoid Screen,Urine Positive ng/mL (Cutoff = 50); Cocaine Screen,Urine Negative ng/mL (Cutoff= 300); Opiate Screen,Urine Negative ng/mL (Cutoff=300); Phencyclidine Screen,Urine Negative ng/mL (Cutoff=25)
[2018-01-20] MEDS: *HR* Heparin 5,000 UNIT/ML VIAL SQ SCH ×3 (06:46→21:21)
[2018-01-20] MEDS: cefTRIAXone 2,000 MG in Water for inj. (sterile) 20 ML 20 ML IVP SCH ×2 (06:47→17:16)
[2018-01-20] MEDS: 0.9 % Sodium Chloride 1,000 ML IVC SCH ×2 (06:48→15:23)
[2018-01-20 07:25] LABS: Hepatitis B Surface Antigen Nonreactive (Nonreactive)
[2018-01-20] MEDS ORDERED: Aminoglycoside Consult 1 EACH MC ONE (07:27)
[2018-01-20 09:31] LABS: Enterococcus by PCR Not Detected (Not Detect); blaKPC Carbapenem-Resist Gene Not Detected (Not Detect)
[2018-01-20 09:32] LABS: Acinetobacter baumannii by PCR Not Detected (Not Detect); Candida albicans by PCR Not Detected (Not Detect); Candida glabrata by PCR Not Detected (Not Detect); Candida krusei by PCR Not Detected (Not Detect); Candida parapsilosis by PCR Not Detected (Not Detect); Candida tropicalis by PCR Not Detected (Not Detect); Escherichia coli by PCR ***DETECTED*** (Not Detect); Klebsiella oxytoca by PCR Not Detected (Not Detect); Klebsiella pneumoniae by PCR Not Detected (Not Detect); Pseudomonas aeruginosa by PCR Not Detected (Not Detect); Serratia marcescens by PCR Not Detected (Not Detect); Staphylococcus aureus by PCR Not Detected (Not Detect); Streptococcus agalactiae(B)PCR Not Detected (Not Detect); Streptococcus by PCR Not Detected (Not Detect); Streptococcus pneumoniae PCR Not Detected (Not Detect); Streptococcus pyogenes (A) PCR Not Detected (Not Detect)
[2018-01-20] MEDS ORDERED: Ondansetron 4 MG/2 ML VIAL IVP PRN (09:46)
[2018-01-20] MEDS ORDERED: *HR* Promethazine 25 MG/ML VIAL IVP PRN (09:46)
[2018-01-20] MEDS: Acetaminophen 325 MG TABLET PO PRN (10:52)
[2018-01-20] MEDS ORDERED: Ondansetron ODT 4 MG TAB.RAPDIS PO PRN (12:32)
--- NOTE | 2018-01-20 12:42 | Internal Med Progress Note ---
Date of Encounter: 01/20/18 Time of Encounter: 12:38 - Assessment and plan (1) Sepsis Current Visit: Yes Status: Acute Assessment and plan: She does meet sepsis criteria with sinus tachycardia, fever and source of inf as UTI Concerning for Pyelonephritis too with her Left CVA tenderness.. However CT did not show any Pyelo Blood cx growing G-ve rods cont Rocephin 2gm IB Daily d/c Vanco 2 D Echo ordered cont close monitoring Urine cx- P Qualifiers: Sepsis type: sepsis due to unspecified organism Qualified Code(s): A41.9 - Sepsis, unspecified organism (2) Bacteremia Current Visit: Yes Status: Acute Assessment and plan: With G-ve rods 4/4 positive source could be UTI however with her IV drug abuse need an extensive work up will check ESR and CRP repeat blood cx in AM (3) UTI (urinary tract infection) Current Visit: Yes Status: Acute Assessment and plan: Suspecting UTI UA - abnormal cont broad sepc abx Qualifiers: Urinary tract infection type: acute cystitis Hematuria presence: without hematuria Qualified Code(s): N30.00 - Acute cystitis without hematuria (4) Altered mental status Current Visit: Yes Status: Acute Assessment and plan: She does have aute toxic encephalopathy with sepsis Also concerning for substance abuse cont close monitoring improving cont IV hydration cont empirical abx Qualifiers: Altered mental status type: unspecified Qualified Code(s): R41.82 - Altered mental status, unspecified (5) Depression Current Visit: Yes Status: Acute Assessment and plan: resume home meds Qualifiers: Depression Type: unspecified Qualified Code(s): F32.9 - Major depressive disorder, single episode, unspecified (6) Substance abuse Current Visit: Yes Status: Acute Assessment and plan: Counseled to quit Marijuana smoking UDS positive for Marijuana Been clean for 2 months Resumed Suboxone (7) DVT prophylaxis Current Visit: Yes Status: Acute Assessment and plan: heparin SQ (8) Hepatitis C Current Visit: Yes Status: Acute Assessment and plan: Never been treated Normal LFTs Need to f/u with PCP as an out pt Qualifiers: Viral hepatitis chronicity: unspecified Hepatic coma status: without hepatic coma Qualified Code(s): B19.20 - Unspecified viral hepatitis C without hepatic coma (9) ELMA (acute kidney injury) Current Visit: Yes Status: Acute Assessment and plan: Improving cont IV fluids for now Avoid nephrotoxins - Time Spent With Patient Total time spent is greater than 50% in coordination of care (as documented) at patient's floor/unit and/or counseling patient: - Subjective Interval history: Ms. Zuniga is a 37 year old female with history of previous IV drug abuse, hepatitis C, depression, morbid obesity, kidney stones who presented to the ED accompanied by her significant other who brought her in as she was incoherent and confused to him. The patient and her significant other work on a [employer] and finished work for the day and were unpacking and getting ready to move to the next city where they are having another carnival. The patient got into her significant other's car and was barely answering questions. The patient does not remember any of these events that got her to the ED here. Throughout the day she has been vomiting and having bilateral flank pain. She has been nauseous. She cannot remember if she had a fever or not however upon presentation she was noted to have temperature 105.3 that came down to 98.6 with Tylenol. She was also tachycardic. The patient has a history of IV drug abuse and says she last used heroin 2 months ago and has been on Suboxone since she has used any. The patient and her boyfriend do report occasional marijuana. They are adamant that no use of other drugs was done prior to arrival. Due to her presentation, the patient underwent an extensive workup in the ED that included a CT head that was unremarkable. She was given Narcan and she was responsive and alert oriented after that. An MRI of the spine was done looking for osteomyelitis/discitis which was unremarkable. Chest x-ray was negative. A CTA of chest abdomen and pelvis was done with nothing acute found. She was given vancomycin and Zosyn in the ED as well as IV fluids. Laboratory workup was only remarkable for mildly elevated creatinine. The patient had a mildly elevated carboxyhemoglobin at 10.2 but she was never hypoxic, although she was put on 2L O2 via nasal cannula. The patient's boyfriend tells me that she had a cat scratch 2 days ago which is healing on her left thigh. She also states that she had an abscess develop on her left antecubital fossa where she used to inject about 2 months ago which resolved on its own. Pt is resting comfortably now. Denied any CP / SOB. She is more alert, awake and O x 3. Does co cough, but denied any expectoration. - Constitutional Vitals: Temp Pulse Resp BP Pulse Ox 102.0 F H 89 19 103/63 94 01/20/18 10:51 01/20/18 10:51 01/20/18 10:51 01/20/18 10:51 01/20/18 10:51 General appearance: Present: A&O X 3, no acute distress, answers questions appropriately - Head Head exam: Present: atraumatic, normal inspection - Neck Neck exam general surgery: Present: supple - Respiratory Respiratory exam: Present: decreased breath sounds, wheezes (mild). Absent: rales, respiratory distress, rhonchi - Cardiovascular Cardiovascular exam: Present: RRR, +S1, +S2. Absent: tachycardia - GI/Abdominal GI/Abdominal exam: Present: normal bowel sounds, soft. Absent: rebound, rigid, tenderness - Extremities Exam Extremities exam: Absent: calf tenderness, pedal edema, tenderness - Back Exam Back exam: Present: CVA tenderness (L). Absent: CVA tenderness (R), paraspinal tenderness, vertebral tenderness - Neurological Exam Neurological exam: Present: alert, oriented X3 - Psychiatric Psychiatric exam: Present: normal affect, normal mood Internal Medicine: Result - Labs CBC & Chem 7: 01/19/18 21:47 01/19/18 21:47 - ABG Interpretation ABG results: PT/INR, D-dimer PT 11.9 Seconds (9.4-12.1) 01/19/18 21:47 Consult Discharge Plan - Plan Referrals: Michael Elena DO [Primary Care Provider] -
[2018-01-20] MEDS: Cholecalciferol (D-3) 1,000 UNIT TABLET PO SCH (14:11)
[2018-01-20] MEDS: NALOXONE HCL SL SCH (20:07)
[2018-01-20] MEDS: BUPRENORPHINE HCL SL SCH (20:07)
[2018-01-20] MEDS: rOPINIRole 1 MG TABLET PO SCH (21:21)
[2018-01-20] MEDS: traZODone 50 MG TABLET PO SCH (21:21)
[2018-01-20] MEDS: Acetaminophen/Butalbital/CaffeineTABLET PO PRN (21:21)
[2018-01-20] MEDS: ALPRAZolam 0.5 MG TABLET PO PRN (21:21)
[2018-01-20] MEDS: Budesonide/Formoterol 160/4.5 MDI IH SCH (22:52)
[2018-01-21] MEDS: 0.9 % Sodium Chloride 1,000 ML IVC SCH (00:55)
[2018-01-21 01:38] LABS: Hepatitis A Antibody IgM Nonreactive (Nonreactive); Hepatitis B Core IgM Nonreactive (Nonreactive)
[2018-01-21 02:16] LABS: Hepatitis C Virus Antibody Reactive (Nonreactive)
[2018-01-21] MEDS: Acetaminophen 325 MG TABLET PO PRN (03:03)
[2018-01-21 06:45] LABS: BUN/Creatinine Ratio 17 (6-26); Blood Urea Nitrogen 13 mg/dL (6-20); Calcium 8.2 mg/dL (8.6-10.3); Carbon Dioxide 22 mEq/L (23-29); Chloride 111 mEq/L (98-107); Glucose 106 mg/dL (70-105); Magnesium 1.8 mg/dL (1.6-2.6); Osmolality,Calculated 287 (280-300); Potassium 3.9 mEq/L (3.5-5.1); Sodium 138 mEq/L (136-145); eGFR For African Americans > 60 (> 60); eGFR For Non-African Americans > 60 (> 60)
[2018-01-21 06:52] LABS: Basophils % 0.2 %; Eosinophils # 0.1 K/mcL (0.0-0.6); Eosinophils % 0.6 %; Hematocrit 31.5 % (35.3-44.9); Immature Granulocytes % 0.5 % (0-4); Lymphocytes # 0.6 K/mcL (0.6-4.6); Lymphocytes % 6.7 %; Mean Corpuscular Hemoglobin 33.7 pg (28.0-33.3); Mean Corpuscular Volume 101.9 fL (83.0-100.0); Mean Platelet Volume 9.8 fL (9.4-12.4); Monocytes # 0.8 K/mcL (0.0-1.3); Monocytes % 9.6 %; Platelet Count 102 K/mcL (140-400); Red Blood Count 3.09 M/mcL (3.82-4.97); Red Cell Distribution Width 13.1 % (11.5-14.5); Segmented Neutrophils % 82.4 %
[2018-01-21] MEDS: cefTRIAXone 2,000 MG in Water for inj. (sterile) 20 ML 20 ML IVP SCH (06:52)
[2018-01-21] MEDS: *HR* Heparin 5,000 UNIT/ML VIAL SQ SCH ×3 (06:52→21:42)
[2018-01-21 07:02] LABS: Hemoglobin 10.4 g/dL (11.5-15.4); Neutrophils # 7.3 K/mcL (1.6-8.9)
[2018-01-21] MEDS: Acetaminophen/Butalbital/CaffeineTABLET PO PRN ×3 (07:05→21:42)
[2018-01-21] MEDS: Budesonide/Formoterol 160/4.5 MDI IH SCH ×2 (07:43→21:52)
[2018-01-21] MEDS: Cholecalciferol (D-3) 1,000 UNIT TABLET PO SCH (09:37)
[2018-01-21] MEDS: NALOXONE HCL SL SCH ×2 (09:37→21:38)
[2018-01-21] MEDS: BUPRENORPHINE HCL SL SCH ×2 (09:37→21:38)
[2018-01-21] MEDS: ALPRAZolam 0.5 MG TABLET PO PRN ×2 (09:40→17:43)
[2018-01-21] MEDS: Nicotine 21 MG PATCH.TD24 TD SCH (13:11)
--- NOTE | 2018-01-21 14:33 | Electrocardiograph Report ---
[address] [address] Test Date: 2018-01-19 Pat Name: Stefanie Zuniga Department: 102 Room: 2A16 Gender: F General House Worker: Nicole : 1980 Requested By: Nate Doll Order Number: [id number] Reading MD: Kate Johnson Measurements Intervals [place] Rate: 100 P: 55 MO: 158 QRS: 39 QRSD: 91 T: 42 QT: 298 QTc: 355 Interpretive Statements SINUS TACHYCARDIA ABNORMAL RHYTHM ECG Electronically Signed On 01-21-2018 14:31:16 EDT by Kate Johnson
--- NOTE | 2018-01-21 15:45 | Internal Med Progress Note ---
Date of Encounter: 01/21/18 Time of Encounter: 12:10 - Assessment and plan (1) Sepsis Current Visit: Yes Status: Acute Assessment and plan: She does meet sepsis criteria with sinus tachycardia, fever and source of inf as UTI Concerning for Pyelonephritis too with her Left CVA tenderness.. However CT did not show any Pyelo Blood cx growing E. Coli cont Rocephin 2gm IV Daily d/c d Vanco 2 D Echo reviewed- No valvular abnormalities noticed cont close monitoring Urine cx- G-ve rods Does need total 2 Weeks PO Abx.. will switch to PO Abx in AM Qualifiers: Sepsis type: sepsis due to unspecified organism Qualified Code(s): A41.9 - Sepsis, unspecified organism (2) Bacteremia Current Visit: Yes Status: Acute Assessment and plan: With E. Coli 4/4 positive source is UTI however with her IV drug abuse need an extensive work up ESR- 32 and CRP- 143 repeat blood cx done today..will f/u on them (3) UTI (urinary tract infection) Current Visit: Yes Status: Acute Assessment and plan: Urine cx - G-ve rods cont broad sepc abx Qualifiers: Urinary tract infection type: acute cystitis Hematuria presence: without hematuria Qualified Code(s): N30.00 - Acute cystitis without hematuria (4) Altered mental status Current Visit: Yes Status: Acute Assessment and plan: She does have aute toxic encephalopathy with sepsis Also concerning for substance abuse cont close monitoring improved cont empirical abx Qualifiers: Altered mental status type: unspecified Qualified Code(s): R41.82 - Altered mental status, unspecified (5) Depression Current Visit: Yes Status: Acute Assessment and plan: resume home meds Qualifiers: Depression Type: unspecified Qualified Code(s): F32.9 - Major depressive disorder, single episode, unspecified (6) Substance abuse Current Visit: Yes Status: Acute Assessment and plan: Counseled to quit Marijuana smoking UDS positive for Marijuana Been clean for 2 months Resumed home dose of Suboxone (7) DVT prophylaxis Current Visit: Yes Status: Acute Assessment and plan: heparin SQ (8) Hepatitis C Current Visit: Yes Status: Acute Assessment and plan: Never been treated Normal LFTs Need to f/u with PCP as an out pt Qualifiers: Viral hepatitis chronicity: unspecified Hepatic coma status: without hepatic coma Qualified Code(s): B19.20 - Unspecified viral hepatitis C without hepatic coma (9) ELMA (acute kidney injury) Current Visit: Yes Status: Acute Assessment and plan: resolved Avoid nephrotoxins (10) Acute respiratory failure with hypoxia Current Visit: Yes Status: Acute Assessment and plan: Improved due to sepsis and deconditioning - Time Spent With Patient Total time spent is greater than 50% in coordination of care (as documented) at patient's floor/unit and/or counseling patient: - Subjective Interval history: Ms. Zuniga is a 37 year old female with history of previous IV drug abuse, hepatitis C, depression, morbid obesity, kidney stones who presented to the ED accompanied by her significant other who brought her in as she was incoherent and confused to him. 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 The patient got into her significant other's car and was barely answering questions. The patient does not remember any of these events that got her to the ED here. Throughout the day she has been vomiting and having bilateral flank pain. She was noted to have temperature 105.3 that came down to 98.6 with Tylenol. The patient has a history of IV drug abuse and says she last used heroin 2 months ago and has been on Suboxone since she has used any. The patient and her boyfriend do report occasional marijuana. They are adamant that no use of other drugs was done prior to arrival. Due to her presentation, the patient underwent an extensive workup in the ED that included a CT head that was unremarkable. She was given Narcan and she was responsive and alert oriented after that. An MRI of the spine was done looking for osteomyelitis/ discitis which was unremarkable. Chest x-ray was negative. A CTA of chest abdomen and pelvis was done with nothing acute found. She was given vancomycin and Zosyn in the ED as well as IV fluids. Laboratory workup was only remarkable for mildly elevated creatinine. The patient had a mildly elevated carboxyhemoglobin at 10.2 but she was never hypoxic, although she was put on 2L O2 via nasal cannula. The patient's boyfriend tells me that she had a cat scratch 2 days ago which is healing on her left thigh. She also states that she had an abscess develop on her left antecubital fossa where she used to inject about 2 months ago which resolved on its own. Pt is resting comfortably now. Denied any CP / SOB. She is more alert, awake and O x 3. Does co cough, but denied any expectoration. Breathing comfortably on RA - Constitutional Vitals: Temp Pulse Resp BP Pulse Ox 98.6 F 60 16 102/66 93 01/21/18 11:10 01/21/18 11:10 01/21/18 11:10 01/21/18 11:10 01/21/18 11:10 General appearance: Present: A&O X 3, no acute distress, answers questions appropriately - Head Head exam: Present: atraumatic, normal inspection - Neck Neck exam general surgery: Present: supple - Respiratory Respiratory exam: Present: decreased breath sounds. Absent: rales, respiratory distress, rhonchi, wheezes - Cardiovascular Cardiovascular exam: Present: RRR, +S1, +S2. Absent: tachycardia - GI/Abdominal GI/Abdominal exam: Present: normal bowel sounds, soft. Absent: rebound, rigid, tenderness - Extremities Exam Extremities exam: Absent: calf tenderness, pedal edema, tenderness - Back Exam Back exam: Present: CVA tenderness (L). Absent: CVA tenderness (R), rash noted - Neurological Exam Neurological exam: Present: alert, oriented X3 - Psychiatric Psychiatric exam: Present: normal affect, normal mood Internal Medicine: Result - Labs CBC & Chem 7: 01/21/18 04:00 01/21/18 04:00 Labs: Short CBC 01/21/18 Range/Units 04:00 WBC 8.8 D (4.3-11.1) K/mcL Hgb 10.4 L D (11.5-15.4) g/dL Hct 31.5 L (35.3-44.9) % Plt Count 102 L (140-400) K/mcL Neutrophils # 7.3 (1.6-8.9) K/mcL BMP 01/21/18 04:00 Sodium 138 Potassium 3.9 Chloride 111 H Carbon Dioxide 22 L BUN 13 Creatinine 0.77 Glucose 106 H Calcium 8.2 L - ABG Interpretation ABG results: PT/INR, D-dimer PT 11.9 Seconds (9.4-12.1) 01/19/18 21:47 - Impressions Impressions Echocardiogram 01/21/18 05:30 Impressions: LVEF 60-65%. Normal right ventricular structure and function. Mild mitral regurgitation. No pulmonary hypertension. Left Ventricular Wall Motion: Rest Echo Findings All wall segments showed normal motion. Findings: Study Quality * Technically adequate exam. ECG Findings * Sinus bradycardia. Left Ventricle * LVEF 60-65%. * Normal LV chamber size, wall thickness and function. * Indeterminate diastolic function. Right Ventricle * Normal right ventricular structure and function. Left Atrium * Normal left atrial size. Right Atrium * Normal right atrial size. Mitral Valve * Normal mitral valve structure. * No mitral stenosis. * Mild mitral regurgitation. Aortic Valve * No aortic regurgitation. * Aortic valve not well visualized. * No aortic stenosis. Tricuspid Valve * Trace tricuspid regurgitation. * Normal tricuspid valve structure. * Estimated RA pressure is 3 mmHg. * Estimated RVSP is 25 mmHg. * No pulmonary hypertension. Pulmonic Valve * Pulmonic valve is not well visualized. * No pulmonic stenosis. * No pulmonic regurgitation. Pulmonary Artery * Pulmonary artery not well visualized. Aorta * Normally sized aortic root. Pericardium * There is no pericardial effusion present. Interatrial Septum * No evidence of PFO by color Doppler. IVC * The IVC is not dilated. Consult Discharge Plan - Plan Referrals: Michael Elena DO [Primary Care Provider] - (please call for an appt. upon discharge)
[2018-01-21] MEDS: tiZANidine 4 MG TABLET PO PRN (18:50)
[2018-01-21] MEDS: rOPINIRole 1 MG TABLET PO SCH (21:42)
[2018-01-21] MEDS: traZODone 50 MG TABLET PO SCH (21:42)
[2018-01-22] MEDS: tiZANidine 4 MG TABLET PO PRN (00:27)
[2018-01-22] MEDS: ALPRAZolam 0.5 MG TABLET PO PRN ×2 (00:27→08:50)
[2018-01-22] MEDS ORDERED: cefTRIAXone 2,000 MG in Water for inj. (sterile) 20 ML 20 ML IVP SCH (05:00)
[2018-01-22] MEDS: *HR* Heparin 5,000 UNIT/ML VIAL SQ SCH (05:14)
[2018-01-22 06:42] VITALS: BP 106/68
[2018-01-22] MEDS: Budesonide/Formoterol 160/4.5 MDI IH SCH (07:39)
[2018-01-22] MEDS: NALOXONE HCL SL SCH (08:45)
[2018-01-22] MEDS: BUPRENORPHINE HCL SL SCH (08:45)
[2018-01-22] MEDS: Cholecalciferol (D-3) 1,000 UNIT TABLET PO SCH (08:45)
[2018-01-22] MEDS: Nicotine 21 MG PATCH.TD24 TD SCH (08:50)
--- NOTE | 2018-01-22 10:21 | Discharge Summary ---
- NOTES TO OUTPATIENT PROVIDER Notes to Outpatient Provider: f/u with PCP in one week. Cont antibiotic for 11 more days Orders not resulted at time of discharge: Pending orders 01/21/18 06:07 Culture,Blood,Additional [BC] AM 0400 01/22/18 07:00 Culture,Blood [BC] AM 0400 Date of Encounter: 01/22/18 Time of Encounter: 10:19 - Discharge Diagnosis (1) Sepsis Priority: Primary Status: Acute Qualifiers: Sepsis type: sepsis due to unspecified organism Qualified Code(s): A41.9 - Sepsis, unspecified organism (2) Bacteremia Priority: Primary Status: Acute (3) UTI (urinary tract infection) Priority: Primary Status: Acute Qualifiers: Urinary tract infection type: acute cystitis Hematuria presence: without hematuria Qualified Code(s): N30.00 - Acute cystitis without hematuria (4) Altered mental status Priority: Primary Status: Acute Qualifiers: Altered mental status type: unspecified Qualified Code(s): R41.82 - Altered mental status, unspecified (5) Depression Priority: Secondary Status: Acute Qualifiers: Depression Type: unspecified Qualified Code(s): F32.9 - Major depressive disorder, single episode, unspecified (6) Substance abuse Priority: Secondary Status: Acute (7) DVT prophylaxis Priority: Secondary Status: Acute (8) Hepatitis C Priority: Secondary Status: Acute Qualifiers: Viral hepatitis chronicity: unspecified Hepatic coma status: without hepatic coma Qualified Code(s): B19.20 - Unspecified viral hepatitis C without hepatic coma (9) ELMA (acute kidney injury) Priority: Secondary Status: Acute (10) Acute respiratory failure with hypoxia Priority: Secondary Status: Acute (11) COPD (chronic obstructive pulmonary disease) Priority: Secondary Status: Acute Qualifiers: Qualified Code(s): J44.9 - Chronic obstructive pulmonary disease, unspecified Hospital course: Ms. Zuniga is a 37 year old female with history of previous IV drug abuse, hepatitis C, depression, morbid obesity, kidney stones who presented to the ED accompanied by her significant other who brought her in as she was incoherent and confused to him. 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 The patient got into her significant other's car and was barely answering questions. The patient does not remember any of these events that got her to the ED here. Throughout the day she has been vomiting and having bilateral flank pain. She was noted to have temperature 105.3 that came down to 98.6 with Tylenol. The patient has a history of IV drug abuse and says she last used heroin 2 months ago and has been on Suboxone since she has used any. The patient and her boyfriend do report occasional marijuana. They are adamant that no use of other drugs was done prior to arrival. Due to her presentation, the patient underwent an extensive workup in the ED that included a CT head that was unremarkable. She was given Narcan and she was responsive and alert oriented after that. An MRI of the spine was done looking for osteomyelitis/ discitis which was unremarkable. Chest x-ray was negative. A CTA of chest abdomen and pelvis was done with nothing acute found. Pt was admitted in the hospital and started her on empirical abx Rocephin and Vancomycin for her sepsis mostly due to UTI. Her blood cx / came back as positive for E. Coli bacteremia and Urine cx also grew E. COli. Her 2 D Echo did not show any acute changes. Her repeat blood cx came back as no growth so far. Pt remained afebrile and her flank pain also improved. So will d.c her home in stable condition today. We did home O2 eval due to her COPD, she does qualify for O2 at 2 lit while ambulating. - Time Spent with Patient Total time spent providing and/or coordinating discharge services: - Discharge Medications Prescriptions: Cefdinir [Omnicef] 300 mg PO BID #22 capsule Lactobacillus [Culturelle] 1 each PO BID #30 cap.sprink Nicotine Patch [Nicoderm] 21 mg TD DAILY #30 patch.[email or web address] Home Medications: ALPRAZolam [Xanax 0.5 MG Tablet] 0.5 mg PO Q6H PRN 10/26/16 [History] Butalbit/Acetamin/Caff/Codeine [Fioricet-Cod [id number] Cap] 1 cap PO Q4H PRN 10/26/16 [History] Ergocalciferol (VITAMIN D2) [Vitamin D2] 50,000 unit PO QWEEK 10/26/16 [History] Omeprazole [PriLOSEC] 40 mg PO DAILY 10/26/16 [History] Ondansetron [Zofran] 8 mg PO DAILY PRN 10/26/16 [History] traZODone [TraZODone] 50 mg PO HS 10/26/16 [History] Budesonide/Formoterol 160/4.5 [Symbicort 160/4.5] 2 puff IH BIDR 01/20/18 [ History] Buprenorphine HCl/Naloxone HCl [Buprenorphin-Naloxon 8-2 mg Sl] 1 tab SL BID [History] Tizanidine HCl 2 mg PO TID PRN 01/20/18 [History] Ventolin Hfa 2 puff IH Q4HR PRN 01/20/18 [History] rOPINIRole [Requip] 1 mg PO HS 01/20/18 [History] Cefdinir [Omnicef] 300 mg PO BID #22 capsule 01/22/18 [Rx] Lactobacillus [Culturelle] 1 each PO BID #30 cap.sprink 01/22/18 [Rx] Nicotine Patch [Nicoderm] 21 mg TD DAILY #30 patch.td24 01/22/18 [Rx] Allergies/Adverse Reactions: 3 Allergy/AdvReac Type Severity Reaction Status Date / Time ciprofloxacin [From Cipro] Allergy Hives Verified 01/19/18 21:32 codeine AdvReac Nausea Verified 01/19/18 21:32 ketorolac [From Toradol] AdvReac Nausea Verified 01/19/18 21:32 morphine AdvReac Nausea Verified 01/19/18 21:32 tramadol AdvReac Nausea Verified 01/19/18 21:32 Date of admission: 01/20/18 05:36 Primary care physician: Michael Elena, DO - Constitutional Vitals: Temp Pulse Resp BP Pulse Ox 99.1 F 64 16 106/68 89 01/22/18 06:35 01/22/18 06:35 01/22/18 07:43 01/22/18 06:35 01/22/18 07:43 General appearance: Present: A&O X 3, no acute distress, answers questions appropriately - Head Head exam: Present: normal inspection, normocephalic - Neck Neck exam general surgery: Present: supple - Respiratory Respiratory exam: Present: decreased breath sounds. Absent: rales, respiratory distress, rhonchi, wheezes - Cardiovascular Cardiovascular exam: Present: RRR, +S1, +S2. Absent: tachycardia - GI/Abdominal GI/Abdominal exam: Present: normal bowel sounds, soft. Absent: rebound, rigid, tenderness - Extremities Exam Extremities exam: Absent: calf tenderness, pedal edema, tenderness - Back Exam Back exam: Absent: CVA tenderness (L), CVA tenderness (R) - Psychiatric Psychiatric exam: Present: normal affect - Patient Status Disposition: Home, Self-Care Condition: Good Overall status at discharge: patient is back to baseline - Discharge Instructions Instructions: Cefdinir (By mouth), Probiotic (By mouth) Follow Up With: Michael Elena DO [Primary Care Provider] - 01/29/18 3:00 pm () - Diet and Activity Activity: increase activity as tolerated Diet: low salt diet
== END 2018-01-22 13:21 | disposition home or self-care (01) | DRG 720 ==
LOC: 2ANU 21:29 → EMEROO 21:29 → 2ANU 01-20 06:05
PROVIDERS: ADMIT Family Medicine; ATTEND Family Medicine